=== PATIENT | female | born 1980 | race American Indian/Alaskan Native ===

== ENCOUNTER 2018-11-21 10:36 | Outpatient (CLI) | payer BC ==
--- NOTE | 2018-11-21 11:29 | Mammography Report ---
BILATERAL DIGITAL DIAGNOSTIC MAMMOGRAM WITH CAD HISTORY: 37-year-old with a palpable right breast lump. COMPARISON: None. This is a baseline mammogram. FINDINGS: Mammographic density: Predominantly fatty Digital CC and MLO views of both breasts demonstrate no mass, architectural distortion or suspicious calcifications. Several calcified benign oil cysts of the right breast. The largest is in the upper i nner right breast and correlates with the palpable lump marked by a triangular marker. It measures 1. 1 cm. No other significant finding. IMPRESSION No mammographic evidence of malignancy. Scattered benign fat necrosis of the right breast with severa l benign coil cysts. The largest cyst in the upper inner right breast correlates with the palpable violet mp. If the clinical examination remains stable, recommend bilateral screening mammograms beginning annual ly at age 40 per the current [employer] guidelines or at intervals appropriate for the patient's risk factors. BIRADS 2: Benign A negative mammogram should not delay biopsy if a clinically suspicious mass is present. Interpretation of this examination was rendered with the benefit of CAD analysis. Signer Name: Kory Colindres MD Signed: 11/21/2018 11:24 AM Workstation Name: [id number]
== END 2018-11-21 10:37 | disposition home or self-care (01) ==
LOC: MAMMO 10:36
PROVIDERS: ATTEND Obstetrics & Gynecology
DX: N63.12 Unspecified lump in the right breast, upper inner quadrant (principal)
CPT/HCPCS: 77066

== ENCOUNTER 2020-09-02 11:29 | Emergency (ER) | payer BC ==
[2020-09-02] MEDS ORDERED: hydrOXYzine HCL 25 MG TAB PO ONE (13:07)
[2020-09-02] MEDS ORDERED: FAMOTIDINE 20 MG TAB PO ONE (13:07)
[2020-09-02] MEDS ORDERED: predniSONE 20 MG TAB PO ONE (13:07)
--- NOTE | 2020-09-02 13:12 | Emergency Department Report ---
ED General Adult HPI - General Chief complaint: Headache Stated complaint: SWOLLEN LIP, SWOLLEN LEFT SIDE OF FACE, HEADACHE Time Seen by Provider: 09/02/20 12:57 Source: patient Mode of arrival: Ambulatory Limitations: No Limitations - History of Present Illness Initial comments: 39-year-old female patient presents to emergency department with complaints of left upper lip swelling starting last night. Patient states her symptoms began after eating out at a [employer] restaurant. She is allergic to nuts. No preceding fall, trauma, or injury. Patient took an allergy pill at home last night with limited relief. Denies fever, chills, dysphagia, hoarseness, swelling of the tongue, wheezing, shortness of breath, rash, syncope. Denies all other complaints at this time. - Related Data Previous Rx's Medication Instructions Recorded Last Taken Type Ciprofloxacin HCl [Ciprofloxacin 250 mg PO BID #7 tablet 12/06/15 Unknown Rx TAB] EPINEPHrine [Epipen 2-Zeeshan] 0.3 mg IJ PRN PRN #1 auto.injct 09/02/20 Unknown Rx Famotidine [Pepcid] 20 mg PO BID 5 Days tablet 09/02/20 Unknown Rx hydrOXYzine HCL [Atarax] 25 mg PO Q6HR PRN #20 tablet 09/02/20 Unknown Rx predniSONE [Deltasone] 20 mg PO QDAY 5 Days tab 09/02/20 Unknown Rx Allergies Allergy/AdvReac Type Severity Reaction Status Date / Time peanut AdvReac Shortness Verified 12/22/14 15:45 of Breath ED Review of Systems ROS: Stated complaint: SWOLLEN LIP, SWOLLEN LEFT SIDE OF FACE, HEADACHE Other details as noted in HPI Other: GENERAL: Negative for fever, chills, weight change, anorexia, fatigue. ENT: Positive for lip swelling. CARDIOVASCULAR: Negative for chest pain, palpitations, lower extremity swelling. PULMONARY: Negative for cough, dyspnea, wheezing, orthopnea, cyanosis. GASTROINTESTINAL: Negative for abdominal pain, nausea, vomiting, diarrhea, constipation. MUSCULOSKELETAL: Negative for joint pain, joint swelling, myalgias, back pain, neck pain. NEUROLOGICAL: Negative for seizure, syncope, paresthesias, weakness. INTEGUMENTARY: Negative for erythema, rash, diaphoresis, laceration, ecchymosis. HEMATOLOGICAL: Negative for hemoptysis, hematemesis, hematochezia, hematuria. PSYCHIATRIC: Negative for hallucinations, suicidal ideation, homicidal ideation, anxiety, depression. ED Past Medical Hx - Past Medical History Previous Medical History?: No - Surgical History Additional Surgical History: Mass removal in ABD - Social History Smoking Status: Never Smoker Substance Use Type: None - Medications Home Medications: Home Medications Medication Instructions Recorded Confirmed Last Taken Type Ciprofloxacin HCl [Ciprofloxacin 250 mg PO BID #7 tablet 12/06/15 Unknown Rx TAB] EPINEPHrine [Epipen 2-Zeeshan] 0.3 mg IJ PRN PRN #1 auto.injct 09/02/20 Unknown Rx Famotidine [Pepcid] 20 mg PO BID 5 Days tablet 09/02/20 Unknown Rx hydrOXYzine HCL [Atarax] 25 mg PO Q6HR PRN #20 tablet 09/02/20 Unknown Rx predniSONE [Deltasone] 20 mg PO QDAY 5 Days tab 09/02/20 Unknown Rx ED Physical Exam - General Limitations: No Limitations - Other Other exam information: General: Awake and alert. No acute distress. Head: Atraumatic, normocephalic. Eyes: EOMI. Pupils are equal and round. Normal sclera and conjunctiva. ENT: Oral mucosa is moist. Normal pharyngeal exam. Minimal swelling noted to the left upper lip. Airway is patent. Uvula is midline and nonedematous. No angioedema of the tongue. Neck: Supple. No lymphadenopathy. Pulmonary: No respiratory distress. Clear to auscultation bilaterally. No wheezing or stridor. Cardiac: Regular rate and rhythm. Pulses are palpable and equal bilaterally. No lower extremity cyanosis or edema. Skin: Warm and dry. No rashes. Abdomen: Soft, non-tender, non-protuberant. No guarding, rigidity, or rebound. Bowel sounds are normal. No organomegaly or masses noted. Back: Normal alignment. No CVA tenderness. Extremities: Symmetrical. Full range of motion intact. Neurological: Alert and oriented, appropriately interactive, no focal deficits. Psych: Cooperative. Appropriate mood and affect. Speech is evenly metered. Thoughts are logically construed. ED Course Vital Signs 09/02/20 12:44 Temperature 98.4 F Pulse Rate 86 Respiratory 18 Rate Blood Pressure 164/99 O2 Sat by Pulse 99 Oximetry ED Medical Decision Making - Medical Decision Making Patient presents to the emergency department with signs/symptoms of an allergic reaction after eating out at a restaurant over 12 hours ago. Suspect she may have inadvertently consumed nut-containing product. Patient is afebrile, he modynamically stable, without clinical evidence to suggest anaphylaxis. Patient will be discharged home with steroids and antihistamines for symptomatic relief as well as an EpiPen in case of future allergic reactions. First dose administered in the emergency department. Referred to primary care provider for close outpatient follow-up. Patient expressed understanding and is agreeable to plan of care. Strict return precautions provided. Critical care attestation.: If time is entered above; I have spent that time in minutes in the direct care of this critically ill patient, excluding procedure time. ED Disposition Clinical Impression: Allergic reaction Qualifiers: Encounter type: initial encounter Qualified Code(s): T78.40XA - Allergy, unspecified, initial encounter Disposition: TO HOME OR SELFCARE Is pt being admited?: No Does the pt Need Aspirin: No Condition: Stable Instructions: How to Use an Auto-Injector Pen Additional Instructions: Take Prednisone with food as directed. Take Pepcid as directed. Take Hydroxyzine as directed for itching. Apply ice to affected area as needed for swelling. Carry an EpiPen with you at all times. Follow-up with primary care provider this week. Call today to schedule an appointment. See referral information below. Return to the emergency department immediately for new or worsening symptoms. Prescriptions: hydrOXYzine HCL [Atarax] 25 mg PO Q6HR PRN #20 tablet PRN Reason: Itching predniSONE [Deltasone] 20 mg PO QDAY 5 Days tab EPINEPHrine [Epipen 2-Zeeshan] 0.3 mg IJ PRN PRN #1 auto.injct PRN Reason: Allergic Reaction Famotidine [Pepcid] 20 mg PO BID 5 Days tablet Referrals: JOSH CEBALLOS MD [Staff Physician] - 3-5 Days [facility] [Outside] - 3-5 Days [facility] [Outside] - 3-5 Days [facility] [Outside] - 3-5 Days [facility] [Provider Group] - 3-5 Days Time of Disposition: 13:14
[2020-09-02 14:24] VITALS: BP 182/95
== END 2020-09-02 14:17 | disposition home or self-care (01) ==
LOC: ED 11:29
DX: T78.40XA Allergy, unspecified, initial encounter (principal); Z98.890 Other specified postprocedural states; Z79.2 Long term (current) use of antibiotics; Z79.899 Other long term (current) drug therapy; Z91.010 Allergy to peanuts; X58.XXXA Exposure to other specified factors, initial encounter
CPT/HCPCS: 99282; J7512

== ENCOUNTER 2021-05-18 14:28 | Emergency (ER) | payer BC, OTHER ==
--- NOTE | 2021-05-18 16:03 | Emergency Department Report ---
ED Female HPI - General Chief complaint: Back Pain/Injury Stated complaint: BACK PAIN/NAUSEA/HEADACHE Source: patient Mode of arrival: Ambulatory Limitations: No Limitations - History of Present Illness Initial comments: 40 y/o female to the ED complaining of low back pain urinary frequency x1 week. Patient states that pain is more on the right side. Patient denies any dysuria with urination. Patient denies any abdominal pain vaginal bleeding fever or chills at present. Denies any trauma, steroid unexplained weight loss. S patient is alert and oriented x3. No acute distress noted. No ill appearance noted. Onset/Timin -: week(s) Severity scale (0 -10): 3 Improves with: none, menstrual period Are you Now?: No Associated Symptoms: denies other symptoms - Related Data Previous Rx's Medication Instructions Recorded Last Taken Type Ciprofloxacin HCl [Ciprofloxacin 250 mg PO BID #7 tablet 12/06/15 Unknown Rx TAB] EPINEPHrine [Epipen 2-Zeeshan] 0.3 mg IJ PRN PRN #1 auto.injct 09/02/20 Unknown Rx Famotidine [Pepcid] 20 mg PO BID 5 Days tablet 09/02/20 Unknown Rx hydrOXYzine HCL [Atarax] 25 mg PO Q6HR PRN #20 tablet 09/02/20 Unknown Rx predniSONE [Deltasone] 20 mg PO QDAY 5 Days tab 09/02/20 Unknown Rx Naproxen [Naprosyn] 500 mg PO BID 15 Days #30 tablet 05/18/21 Unknown Rx Nitrofurantoin [place]/M-Cryst 100 mg PO Q12HR 5 Days #10 capsule 05/18/21 Unknown Rx [Macrobid CAP] methOCARBAMOL [Robaxin TAB] 750 mg PO Q8H PRN 15 Days #30 tab 05/18/21 Unknown Rx Allergies Allergy/AdvReac Type Severity Reaction Status Date / Time peanut AdvReac Shortness Verified 12/22/14 15:45 of Breath ED Review of Systems ROS: Stated complaint: BACK PAIN/NAUSEA/HEADACHE Other details as noted in HPI Constitutional: denies: chills, fever Eyes: denies: eye pain, eye discharge, vision change ENT: denies: ear pain, throat pain Respiratory: denies: cough, shortness of breath, wheezing Cardiovascular: denies: chest pain, palpitations Endocrine: no symptoms reported Gastrointestinal: nausea. denies: abdominal pain, diarrhea Genitourinary: urgency, frequency. denies: dysuria, discharge Musculoskeletal: denies: back pain, joint swelling, arthralgia Skin: denies: rash, lesions Neurological: denies: headache, weakness, paresthesias Psychiatric: denies: anxiety, depression Hematological/Lymphatic: denies: easy bleeding, easy bruising ED Past Medical Hx - Surgical History Additional Surgical History: Mass removal in ABD - Social History Smoking Status: Never Smoker Substance Use Type: None - Medications Home Medications: Home Medications Medication Instructions Recorded Confirmed Last Taken Type Ciprofloxacin HCl [Ciprofloxacin 250 mg PO BID #7 tablet 12/06/15 Unknown Rx TAB] EPINEPHrine [Epipen 2-Zeeshan] 0.3 mg IJ PRN PRN #1 auto.injct 09/02/20 Unknown Rx Famotidine [Pepcid] 20 mg PO BID 5 Days tablet 09/02/20 Unknown Rx hydrOXYzine HCL [Atarax] 25 mg PO Q6HR PRN #20 tablet 09/02/20 Unknown Rx predniSONE [Deltasone] 20 mg PO QDAY 5 Days tab 09/02/20 Unknown Rx Naproxen [Naprosyn] 500 mg PO BID 15 Days #30 tablet 05/18/21 Unknown Rx Nitrofurantoin [place]/M-Cryst 100 mg PO Q12HR 5 Days #10 capsule 05/18/21 Unknown Rx [Macrobid CAP] methOCARBAMOL [Robaxin TAB] 750 mg PO Q8H PRN 15 Days #30 tab 05/18/21 Unknown Rx ED Physical Exam - General Limitations: No Limitations General appearance: alert, in no apparent distress - Head Head exam: Present: atraumatic, normocephalic - Eye Eye exam: Present: normal appearance - ENT ENT exam: Present: mucous membranes moist - Neck Neck exam: Present: normal inspection - Respiratory Respiratory exam: Present: normal lung sounds bilaterally. Absent: respiratory distress - Cardiovascular Cardiovascular Exam: Present: regular rate, normal rhythm. Absent: systolic murmur, diastolic murmur, rubs, gallop - GI/Abdominal GI/Abdominal exam: Present: soft, normal bowel sounds. Absent: tenderness, guarding - Extremities Exam Extremities exam: Present: normal inspection - Back Exam Back exam: Present: normal inspection - Neurological Exam Neurological exam: Present: alert, oriented X3 - Psychiatric Psychiatric exam: Present: normal affect, normal mood - Skin Skin exam: Present: warm, dry, intact, normal color. Absent: rash ED Course Vital Signs 05/18/21 14:59 Temperature 98.4 F Pulse Rate 75 Respiratory 16 Rate Blood Pressure 188/87 [Left] O2 Sat by Pulse 96 Oximetry ED Medical Decision Making - Lab Data Laboratory Results - last 24 hr 05/18/21 Unknown Urine Color Straw Urine Turbidity Clear Urine pH 8.0 H Ur Specific [place] 1.010 Urine Protein <15 mg/dl Urine Glucose (UA) Neg Urine Ketones Neg Urine Blood Neg Urine Nitrite Neg Urine Bilirubin Neg Urine Urobilinogen < 2.0 Ur Leukocyte Esterase Neg Urine WBC (Auto) < 1.0 Urine RBC (Auto) < 1.0 U Epithel Cells (Auto) 1.0 Urine HCG, Qual Negative - Medical Decision Making 40 y/o female to the ED complaining of low back pain urinary frequency x1 week. Patient states that pain is more on the right side. Patient denies any dysuria with urination. Patient denies any abdominal pain vaginal bleeding fever or chills at present. Denies any trauma, steroid unexplained weight loss. S patient is alert and oriented x3. No acute distress noted. No ill appearance noted. Physical examination unremarkable. UA unremarkable Will Treat patient for acute urinary tract infection based on symptom. Patient states no history of hypertension. Will not treat patient is to follow-up with [facility] Rechecked the patient is resting quietly quietly and comfortable and feeling better. I discussed the results of diagnostic study, my clinical impression and the plan for further treatment with the patient. Patient agrees with plan and discharge at this present time. All question addressed. I have given the patient instruction regarding a diagnosis ,expectation ,follow- up and return precaution. I explained to the patient that emergent condition may arise and to return to the ED for new worsen and any new persisting condition. I have explained the importance of following up with the primary care physician or referral physician listed below has instructed. The patient verbalized underst anding of discharge instruction. Critical care attestation.: If time is entered above; I have spent that time in minutes in the direct care of this critically ill patient, excluding procedure time. ED Disposition Clinical Impression: Acute urinary tract infection Disposition: HOME / SELF CARE / HOMELESS Is pt being admited?: No Does the pt Need Aspirin: No Condition: Stable Instructions: Antibiotic Medicine, Adult, [id number], Urinary Tract Infection, Adult, [id number], Back Exercises, [id number], Chronic Back Pain Additional Instructions: Take medication as prescribed Return to ED for any worsening symptom Prescriptions: Nitrofurantoin [place]/M-Cryst [Macrobid CAP] 100 mg PO Q12HR 5 Days #10 capsule Naproxen [Naprosyn] 500 mg PO BID 15 Days #30 tablet methOCARBAMOL [Robaxin TAB] 750 mg PO Q8H PRN 15 Days #30 tab PRN Reason: Muscle Spasm Referrals: PRIMARY CARE, [Primary Care Provider] - 3-5 Days [facility] [Provider Group] - 3-5 Days
[2021-05-18 17:21] LABS: Bilirubin,Urine NEG (Negative); Blood,Urine NEG (Negative); Color,Urine Straw (Yellow); Protein,Urine <15 mg/dL mg/dL (Negative); RBC,Urine < 1.0 /HPF (0.0-6.0); Urobilinogen,Urine < 2.0 mg/dL (<2.0); WBC,Urine < 1.0 /HPF (0.0-6.0)
[2021-05-18 17:27] LABS: HCG Qualitative,Urine Negative (Negative)
[2021-05-18 20:01] VITALS: BP 181/87
== END 2021-05-18 19:59 | disposition home or self-care (01) ==
LOC: ED 14:28
DX: N39.0 Urinary tract infection, site not specified (principal); Z91.010 Allergy to peanuts
CPT/HCPCS: 81001; 81025; 99283